=== PATIENT | male | born 1940 | race Two or more races ===

== ENCOUNTER 2024-07-22 09:14 | Inpatient (IN) | payer OTHER ==
[~2024-07-22] VITALS: Ht 152.4 cm; Wt 96.2 kg
[2024-07-22] MEDS ORDERED: CRESTOR40 MG (09:35)
[2024-07-22] MEDS ORDERED: FLONASE16 GM (09:35)
[2024-07-22] MEDS ORDERED: TAMS0.4C (09:35)
[2024-07-22] MEDS ORDERED: ZETIA10 MG (09:35)
[2024-07-22] MEDS ORDERED: ARICEPT10 MG (09:36)
[2024-07-22] MEDS ORDERED: RIVASTIGMINE1.5 MG (09:36)
[2024-07-22] MEDS ORDERED: SINGULAIR4 M1 (09:36)
[2024-07-22] MEDS ORDERED: EXELON1 EAC1 (09:36)
[2024-07-22] MEDS ORDERED: LEVALBUTEROL HCL 1.25 MG/3 ML SOLUTION IH STA (10:09)
[2024-07-22] MEDS ORDERED: HYDROCODONE/CHLORPHEN P-STIREX 5 ML ML PO STA (10:09)
[2024-07-22] MEDS ORDERED: BUDESONIDE 0.5 MG/2 ML AMPUL.NEB IH STA (10:10)
[2024-07-22] MEDS ORDERED: IPRATROPIUM BROMIDE 0.5 MG/2.5 ML AMPUL.NEB IH STA (10:10)
[2024-07-22] MEDS ORDERED: METHYLPREDNISOLONE SOD SUCC 125 MG VIAL IV STA (10:11)
[2024-07-22] MEDS ORDERED: METHYLPREDNISOLONE SOD SUCC 125 MG VIAL ONE (10:18)
[2024-07-22] MEDS ORDERED: LEVALBUTEROL HCL 1.25 MG/3 ML SOLUTION IH ONE (10:26)
[2024-07-22] MEDS ORDERED: BUDESONIDE 0.5 MG/2 ML AMPUL.NEB IH ONE (10:27)
[2024-07-22] MEDS ORDERED: IPRATROPIUM BROMIDE 0.5 MG/2.5 ML AMPUL.NEB IH ONE (10:27)
[2024-07-22 10:39] LABS: ABG PO2 71.7 mmHg (80-100); ABG pCO2 36.2 mmHg (35-45); BICARBONATE 24.6 mmol/l (23-25); Tco2 25.7 mmol/l
[2024-07-22 10:39] LABS: HEMATOCRIT 41.6 % (39.0-48.0); HEMOGLOBIN 14.1 g/dL (13-16.00); MEAN CELL VOLUME 100.8 fL (80.0-100.00); MEAN CORPUSCULAR HEMOGLOBIN 34.2 pg (27.00-32.0); MEAN CORPUSCULAR HGB CONC 33.9 g/dl (32.0-36.0); PLATELET COUNT 243 K/uL (150-450); RED BLOOD COUNT 4.13 M/uL (4.00-6.00); RED CELL DISTRIBUTION WIDTH 14.5 % (11.5-14.5)
[2024-07-22 11:05] LABS: allen test SATISFACTORY; o2 21 %; puncture site RADIAL RIGHT
[2024-07-22 11:40] LABS: CALCIUM 9.5 mg/dL (8.5-10.1); CREATININE SERUM 1.05 mg/dL (0.70-1.30); GFR 66.97; POTASSIUM 4.09 mEq/L (3.5-5.1)
[2024-07-22] MEDS ORDERED: MAGNESIUM SULFATE IN WATER 4 GM/100 ML PIGGYBACK IV STA (11:57)
[2024-07-22 12:36] LABS: PH,URINE 5.5 (5.0-8.0); URINE APPEARANCE Clear; URINE BILIRRUBIN Negative (NEGATIVE); URINE BLOOD Trace; URINE COLOR Yellow; URINE GLUCOSE Negative (NEGATIVE); URINE KETONE Negative (NEGATIVE); URINE LEUKOCYTE Negative; URINE NITRATE Negative; URINE PROTEIN Negative (NEGATIVE); URINE UROBILINOGEN 0.2 E.U./dl
[2024-07-22 12:40] LABS: URINE BACTERIA 23.9 uL (0.0-1933); URINE EPITHELIAL CELLS 1.8 uL (0.0-38.8); URINE RBC 3.5 uL (0.0-20.8)
[2024-07-22 12:45] LABS: URINE WBC 1.2 uL (0.0-23.2)
[2024-07-22] MEDS ORDERED: CEFTRIAXONE SODIUM 2,000 MG in 0.9 % SODIUM CHLORIDE 100 ML IV SCH (14:33)
[2024-07-22] MEDS ORDERED: IPRATROPIUM BROMIDE 0.5 MG/2.5 ML AMPUL.NEB IH SCH (14:34)
[2024-07-22] MEDS ORDERED: METHYLPREDNISOLONE SOD SUCC 40 MG VIAL IV SCH (14:36)
[2024-07-22] MEDS ORDERED: ENOXAPARIN SODIUM 30 MG/0.3 ML SYRINGE SUBCUTANEO SCH (14:36)
[2024-07-22] MEDS ORDERED: 0.9 % SODIUM CHLORIDE 1,000 ML IV SCH (14:45)
[2024-07-22] MEDS ORDERED: ACETAMINOPHEN 325 MG TABLET PO PRN (14:45)
[2024-07-22] MEDS ORDERED: ATORVASTATIN CALCIUM 40 MG TABLET PO SCH (14:51)
[2024-07-22] MEDS ORDERED: HYDROCHLOROTHIAZIDE 12.5 MG CAPSULE PO SCH (14:51)
[2024-07-22] MEDS ORDERED: DONEPEZIL HCL 10 MG TABLET PO SCH (14:51)
[2024-07-22 16:39] VITALS: BP 124/72; O2SAT 91
[2024-07-22] MEDS ORDERED: IRBESARTAN 150 MG TABLET PO SCH (17:00)
[2024-07-22] MEDS ORDERED: AZITHROMYCIN 500 MG in DEXTROSE 5 % IN WATER 250 ML IV SCH (17:00)
[2024-07-22] MEDS ORDERED: LEVALBUTEROL HCL 0.63 MG/3 ML SOLUTION IH SCH (17:00)
[2024-07-22] MEDS ORDERED: FAMOTIDINE/PF 20 MG in 0.9 % SODIUM CHLORIDE 100 ML IV SCH (17:00)
[2024-07-22 17:25] LABS: INR 0.99; PARTIAL THROMBOPLASTIN TIME 26.8 SECONDS (22.0-34.0); PROTHROMBIN TIME 10.8 SECONDS (9.0-11.5)
[2024-07-22 17:31] LABS: ALT/SGPT 31 U/L (12-78); AST/SGOT 20 U/L (15-37); LDH 295 U/L (87-241); PHOSPHOKINASE CREATININE 160 U/L (39-308)
[2024-07-22 20:43] VITALS: BP 148/85; O2SAT 95
[2024-07-23 02:33] VITALS: BP 155/93; O2SAT 95
[2024-07-23 08:54] VITALS: BP 158/87
[2024-07-23] MEDS ORDERED: ACETAMINOPHEN 500 MG GEL..CAP PO PRN (10:45)
[2024-07-23 12:38] LABS: HEMATOCRIT 39.2 % (39.0-48.0); HEMOGLOBIN 13.3 g/dL (13-16.00); MEAN CORPUSCULAR HEMOGLOBIN 33.5 pg (27.00-32.0); MEAN CORPUSCULAR HGB CONC 33.9 g/dl (32.0-36.0); PLATELET COUNT 234 K/uL (150-450); RED BLOOD COUNT 3.96 M/uL (4.00-6.00); RED CELL DISTRIBUTION WIDTH 14.6 % (11.5-14.5)
[2024-07-23 13:26] LABS: ALBUMIN 3.3 gm/dL (3.4-5.0); BILIRUBIN TOTAL 0.22 mg/dL (0.3-1.2); CALCIUM 9.6 mg/dL (8.5-10.1); CHOL HDL RATIO 2.3 (0-5.0); GFR 70.85; GLOBULINA 3.5 G/DL (2.4-3.5); POTASSIUM 3.89 mEq/L (3.5-5.1); PROSTATIC SPECIFIC ANTIGEN 0.397 NG/ML (0.010-4.00); TOTAL PROTEIN 6.8 gm/dL (6.4-8.2)
[2024-07-23 13:32] LABS: TSH 0.345 uIU/mL (0.358-3.74)
[2024-07-23 17:51] VITALS: BP 147/81; O2SAT 95
[2024-07-24 02:30] VITALS: BP 147/82; O2SAT 96
[2024-07-24] MEDS ORDERED: ENOXAPARIN SODIUM 40 MG/0.4 ML SYRINGE SUBCUTANEO SCH (09:00)
[2024-07-24 10:22] VITALS: BP 155/77
[2024-07-24 10:23] VITALS: BP 95/59
[2024-07-24 10:25] VITALS: BP 155/77
[2024-07-24] MEDS ORDERED: CODEINE PHOSPHATE/GUAIFENESIN 5 ML ML PO SCH (17:00)
[2024-07-24 17:42] VITALS: BP 147/78; O2SAT 90
[2024-07-25 02:23] VITALS: BP 150/93; O2SAT 98
[2024-07-25 10:09] VITALS: BP 162/77
[2024-07-25 18:50] VITALS: BP 176/79
[2024-07-26 02:08] VITALS: BP 152/96
[2024-07-26 09:00] VITALS: BP 103/68; O2SAT 96
[2024-07-26] MEDS ORDERED: NIFEDIPINE 30 MG TAB.SA.OSM PO SCH (09:00)
[2024-07-26] MEDS ORDERED: FAMOtidine 20 MG TABLET PO SCH (17:00)
[2024-07-26 19:28] VITALS: BP 127/71
[2024-07-26] MEDS ORDERED: LORazepam 0.5 MG TABLET PO SCH (21:00)
[2024-07-26 22:26] VITALS: BP 160/85
[2024-07-27 03:25] VITALS: BP 90/52; O2SAT 97
[2024-07-27 08:31] LABS: HEMATOCRIT 42.6 % (39.0-48.0); HEMOGLOBIN 14.4 g/dL (13-16.00); MEAN CELL VOLUME 100.3 fL (80.0-100.00); MEAN CORPUSCULAR HGB CONC 33.8 g/dl (32.0-36.0); PLATELET COUNT 258 K/uL (150-450); RED BLOOD COUNT 4.25 M/uL (4.00-6.00); RED CELL DISTRIBUTION WIDTH 14.2 % (11.5-14.5)
[2024-07-27 09:21] VITALS: BP 134/82
[2024-07-27 09:32] LABS: ALBUMIN 3.1 gm/dL (3.4-5.0); BILIRUBIN TOTAL 0.3 mg/dL (0.3-1.2); CALCIUM 9.3 mg/dL (8.5-10.1); CREATININE SERUM 0.97 mg/dL (0.70-1.30); GFR 73.38; GLOBULINA 3.4 G/DL (2.4-3.5); MAGNESIUM 2.1 mg/dL (1.8-2.4); POTASSIUM 4.76 mEq/L (3.5-5.1); TOTAL PROTEIN 6.5 gm/dL (6.4-8.2)
[2024-07-27 18:08] VITALS: BP 119/84
[2024-07-28 01:45] VITALS: BP 131/71; O2SAT 95
[2024-07-28 06:26] VITALS: BP 101/66; O2SAT 96
[2024-07-28] MEDS ORDERED: LEVALBUTER0.31 MG/3 IH (07:21)
[2024-07-28 09:20] VITALS: BP 121/82
== END 2024-07-28 11:06 | disposition home or self-care (01) | DRG 202 ==
LOC: ER 09:16 → MEDJ 14:49
PROVIDERS: General Practice; ADMIT Internal Medicine; ATTEND Internal Medicine
PROC: BB24ZZZ Computerized Tomography (CT Scan) of Bilateral Lungs (ICD-10-PCS; principal; 2024-07-22)
PROC: B246ZZZ Ultrasonography of Right and Left Heart (ICD-10-PCS; 2024-07-22)
PROC: 3E0F7GC Introduction of Other Therapeutic Substance into Respiratory Tract, Via Natural or Artificial Opening (ICD-10-PCS; 2024-07-22)
DX: J45.901 Unspecified asthma with (acute) exacerbation (principal); I50.30 Unspecified diastolic (congestive) heart failure; J20.9 Acute bronchitis, unspecified; G30.9 Alzheimer's disease, unspecified; F02.80 Dementia in other diseases classified elsewhere, unspecified severity, without behavioral disturbance, psychotic disturbance, mood disturbance, and anxiety; R09.02 Hypoxemia; I11.0 Hypertensive heart disease with heart failure; E66.8 Other obesity